=== PATIENT | female | born 1990 | race Caucasian/White ===

== ENCOUNTER → 2022-11-25 13:49 | Outpatient (CLI) | payer BC, SELFPAY ==
--- NOTE | 2022-11-25 13:50 | US_ITS ---
PROCEDURE: US TRANSVAGINAL CLINICAL INDICATION: abnormal uterine bleeding COMPARISON: No exams were available for comparison FINDINGS: Transabdominal sonographic images of the pelvis were obtained. UTERUS: 7.6 cm x 0.5 cmx 4.8 cm with a combined endometrial thickness of 9mm. Uterus is retroverted and retroflexed. LEFT OVARY: 3.8 cmx2.8 cmx2.3cm with a volume of 12.5ml.It has a polycystic appearance. Dominant follicle measuring 1.4 cm x 1.5 cm x 1.4 cm. RIGHT OVARY: 3.4 cmx 2.3 cmx2.1 cm with a volume of 8.3ml. It has a polycystic appearance. Both ovaries are seen and appear polycystic. Doppler flow to both ovaries are seen. There is no fluid in the cul-de-sac. IMPRESSION: 1. Retroverted, retroflexed uterus normal in shape and size. 2. The endometrium is normal measuring 9 mm. 3. Both ovaries appear polycystic. There is a dominant 1.5 cm follicle on the left ovary. 4. No fluid in the cul-de-sac. Dictated by: Rosendo Fernández MD 11/25/2022 17:59 Rosendo Fernández MD in OV 11/25/2022 17:59
== END ==
PROVIDERS: PCP Nurse Practitioner Family; Visit Provider Obstetrics & Gynecology
DX: N93.9 Abnormal uterine and vaginal bleeding, unspecified (principal)
CPT/HCPCS: 76830

== ENCOUNTER → 2022-12-30 15:35 | Outpatient (CLI) | payer BC, SELFPAY ==
[2022-12-30 15:56] LABS: Basophils % 0.3 % (0.1-2.0); Eosinophils # 0.5 K/mm3 (0.0-0.4); Eosinophils % 6.3 % (0.1-12.0); Hematocrit 42.1 % (37.0-47.0); Hemoglobin 14.3 g/dL (12.2-16.2); Lymphocytes # 2.4 K/mm3 (0.7-4.5); Lymphocytes % 33.6 % (10-50); Mean Corpuscular HGB Conc 33.9 g/dL (31.8-35.4); Mean Corpuscular Hemoglobin 32.2 pg (27.0-31.2); Mean Corpuscular Volume 95.1 fl (81-99); Mean Platelet Volume 8.5 fl (7.4-10.4); Monocytes # 0.3 K/mm3 (0.1-1.0); Monocytes % 3.8 % (1.7-9.3); Platelet Count 261 K/mm3 (142-424); Red Blood Count 4.43 M/mm3 (4.20-5.40); Red Cell Distribution Width 12.9 % (11.5-17.5); White Blood Count 7.1 K/mm3 (4.8-10.8)
[2022-12-30 16:45] LABS: Alanine Aminotransferase 31 U/L (12-78); Albumin Level 4.4 g/dl (3.5-5.0); Albumin/Globulin Ratio 1.6 (1.1-1.8); Alkaline Phosphatase 68 U/L (38-126); Anion Gap 12.3 mEq/L (5-15); Aspartate Amino Transferase 29 U/L (14-36); Bilirubin,Total 0.2 mg/dl (0.2-1.3); Blood Urea Nitrogen 15 mg/dl (7-17); Calcium 9.4 mg/dl (8.4-10.2); Carbon Dioxide 27 mmol/L (22.0-30.0); Chloride 105 mmol/L (98-107); Estimated Glomerular Filt Rate 98 ml/min (>60); GFR (African American) 118 ML/MIN (>60); Globulin 2.7 g/dL (1.3-3.2); Glucose 84 mg/dl (74-100); Potassium 4.3 mmoL/L (3.5-5.1); Sodium 140 mmol/L (136-145); Total Protein,Serum 7.1 g/dl (6.3-8.2)
[2022-12-30 17:01] LABS: HCG,Quantitative < 2 mIU/ml (0-5.42)
== END ==
PROVIDERS: PCP Nurse Practitioner Family; Visit Provider Obstetrics & Gynecology
DX: N92.0 Excessive and frequent menstruation with regular cycle (principal)
CPT/HCPCS: 80053; 84702; 85025

== ENCOUNTER 2023-01-04 10:13 | Observation (INO) | payer BC, SELFPAY ==
[2023-01-04] VITALS (20 sets, daily range): BP systolic 112–149; BP diastolic 67–105; PULSE 69–751; RESP 14–20; TEMP 35.7–36.8; O2SAT 92–99; BMI 42.3
--- NOTE | 2023-01-04 07:02 | EXP.HP ---
History of Present Illness *Admission Date: 01/04/23 *Reason for visit:: Abnormal uterine bleeding, pain with periods *History of present illness: Ms Maria L Butt presents to [facility] for scheduled surgery. She complains of abnormal uterine bleeding. She states periods have always been very irregular, heavy and painful but have become worse over the past 2 years. LMP 12/21/22. She states periods are very irregular. She admits she usually skips about 2 months each year. Pain occurs about 3 days before her period and lasts the whole time she is bleeding. Flow lasts 5-14 days. Flow is extremely heavy and affects activities of daily living. She has tried Nexplanon and OCPs in the past without success. History of tubal ligation in 2019. History of x 2. She desires definitive surgical intervention with hysterectomy. She reports last pap smear was September 2022 at . Pelvic ultrasound 11/25/22 within normal limits. Pap smear 08/2021 negative. TSH 09/18/21 at OSH was within normal limits. [facility] Disclaimer: The information contained in this section may have been updated after the patient was seen, as this information can be updated by other users. Medical History Abnormal uterine bleeding Allergies Dysmenorrhea Menorrhagia Morbid obesity with BMI of 40.0-44.9, adult Urinary tract infection Surgical History History of tonsillectomy History of tubal ligation History of wisdom tooth extraction Family History Grandmother Cancer Social History Smoking Status: Current every day smoker years smoked: 6 alcohol intake: never substance use type: denies use current occupational status: employed Travel in the last 8 weeks: None Review of Systems Review of Systems Review of systems:: pertinent systems reviewed and negative unless documented below *Genitourinary Genitourinary: Reports abnormal menses, Reports abnormal vaginal bleeding and Reports dysmenorrhea Meds Home Medications and Allergies Home Medications Medication Instructions Recorded Confirmed Type fexofenadine 180 mg tablet 180 mg PO DAILY 12/30/22 01/04/23 History New Prescriptions to Start Prescriptions: Allergies Allergy/AdvReac Type Severity Reaction Status Date / Time No Known Allergies Allergy Verified 01/04/23 06:21 Exam Constitutional Constitutional: no acute distress and cooperative *Routine HEENT Exam Head: Present normocephalic and atraumatic Eye: Absent conjunctivae pink ENT: Present mucous membranes moist *Routine Neck Exam Neck: Present full ROM *Routine Respiratory Exam Respiratory: Present CTA bilaterally and normal respiratory effort *Routine Cardiovascular Exam Cardiovascular: Present RRR *Routine Abdominal Exam Abdominal: Present soft, normoactive bowel sounds and obese; Absent tenderness or distended *Routine Rectal Exam Rectal:: deferred *Routine Genitalia Exam Genitalia:: normal female *Routine Extremities Exam Extremities: Present full ROM; Absent edema or calf tenderness *Routine Neurological Exam Neurological: Present alert, oriented X3 and moving all extremities Routine Psychiatric Exam Psychiatric: Present normal affect and cooperative Assessment and Plan *Assessment and plan (1) Abnormal uterine bleeding: Status: Acute Category: Medical Code(s): N93.9 - Abnormal uterine and vaginal bleeding, unspecified (2) Menorrhagia: Status: Acute Qualifiers: Menorrhagia type: with irregular cycle Qualified Code(s): N92.1 - Excessive and frequent menstruation with irregular cycle Category: Medical Code(s): N92.0 - Excessive and frequent menstruation with regular cycle (3) Dysmenorrhea: Status: Acute Category: Medical Code(s): N94.6 - Dysmeno
--- NOTE | 2023-01-04 07:38 | P.PNANES_ITS ---
[facility] Disclaimer: The information contained in this section may have been updated after the patient was seen, as this information can be updated by other users. Medical History Abnormal uterine bleeding Allergies Dysmenorrhea Menorrhagia Morbid obesity with BMI of 40.0-44.9, adult Urinary tract infection Surgical History History of tonsillectomy History of tubal ligation History of wisdom tooth extraction Family History Grandmother Cancer Social History Smoking Status: Current every day smoker years smoked: 6 alcohol intake: never substance use type: denies use current occupational status: employed Travel in the last 8 weeks: None [facility] Anesthesia Checklist Patient Identification Patient Identification: Verbal (Name & ) Structural Data Admitted From: Home Planned Operative Procedure/s: lap hyst bso Consent for Planned Operative Procedure(s) Verified: Yes NPO Status Verified Time NPO: 00:00 Additional verifications Anesthesia Reactions: No Hx Blood Transfusions: No Blood Transfusion Reaction: No Airway Assessment Mallampati Score:: Class III C-Spine Mobility Assessed: Yes TMJ Mobility Assessed: Yes Dentition: Good Dentition Neurological Assessment Level of Consciousness: Awake, Alert and Appropriate Anesthesia Plan Anesthesia Risk discussed: Yes Anesthesia Plan: Verified ASA Class: III Anesthesia Type: General
--- NOTE | 2023-01-04 09:56 | EXP.OP.NOTE ---
Date of procedure: 01/04/23 Pre-op Diagnosis:: 1. Abnormal uterine bleeding 2. Menorrhagia 3. Dysmenorrhea Post-op Diagnosis:: 1. Abnormal uterine bleeding 2. Menorrhagia 3. Dysmenorrhea Procedure performed:: Total Laparoscopic hysterectomy, bilateral salpingectomy Surgeon:: Mckenzie Ayala DO Hot Stick Worker(s):: Rosendo Fernández MD TRANSLATOR/INTERPRETER:: Other (Saldaris, TRANSLATOR/INTERPRETER) Anesthesia: GETA Estimated blood loss (mL): 100 Clinical Note:: Ms Maria L Butt presents to [facility] for scheduled surgery. She complains of abnormal uterine bleeding. She states periods have always been very irregular, heavy and painful but have become worse over the past 2 years. LMP 12/21/22. She states periods are very irregular. She admits she usually skips about 2 months each year. Pain occurs about 3 days before her period and lasts the whole time she is bleeding. Flow lasts 5-14 days. Flow is extremely heavy and affects activities of daily living. She has tried Nexplanon and OCPs in the past without success. History of tubal ligation in 2019. History of x 2. She desires definitive surgical intervention with hysterectomy. She reports last pap smear was September 2022 at . Pelvic ultrasound 11/25/22 within normal limits. Pap smear 08/2021 negative. TSH 09/18/21 at OSH was within normal limits. Operative findings:: 1. On bimanual exam, uterus normal size and shape, midposition. No adnexal masses palpated 3. On laparoscopic exam, grossly normal appearing liver, omentum, bowel, uterus and bilateral ovaries. Left fallopian tube appeared grossly normal with Filshie clip present. Right fallopian tube with hydrosalpinx, paratubal cyst and Filshie clip present Operative note:: Discussed risks, benefits, alternatives, expectations and possible complications of surgery. All questions addressed and answered. Patient wished to proceed with surgery. Patient was wheeled back to the operating room and placed under general anesthesia without difficulty. She was placed in the dorsal lithotomy position. She was prepped and draped in normal sterile fashion. Beginning at the vagina, a aceves catheter was inserted into the bladder and draining clear urine prior to the start of the procedure. Weighted Auvuard was placed in the vaginal vault. Anterior lip of the cervix was grasped with single tooth tenaculum. Uterus sounded to 9. Cam dilators were used to dilate the cervix. Advincula uterine manipulator was inserted into the cervix with the colpotomy cup covering the cervix. Single tooth tenaculum was removed prior to complete placement of colpotomy cup over cervix. Uterine balloon was filled with 10cc of air. Vaginal balloon was filled with 60 cc of air. Weighted Auvard was removed. Attention was then turned to the abdomen. Skin just below the umbilicus was injected with 0.5% marcaine. A 1.5 cm infraumbilical incision was made. Veress needle was tested and inserted intrabdominally. Opening pressure was 7 mm Hg. The peritoneal cavity was insulflated to 15 mm Hg. Laparoscope within 11 mm blunt trocar was inserted intrabdominally under direct visualization. Obturator and scope were removed. Laparoscope was inserted into the trocar sleeve. Abdomen and pelvis was viewed in its entirety. Examination of the peritoneal cavity revealed no signs of injury from entry and normal anatomic structures. See findings above. Pictures were taken. Bowel was swept cephalad with blunt probe. RLQ port site was transilluminated and injected with 0.5% marcaine. A 1.5 cm incision was made and 11 mm trocar was inserted intraabdominally under direct laparoscopic visualization. Obturator was removed and sleeve was left in place. Same procedure was performed in LLQ. Left fallopian tube was grasped at fimbriated end. Ligasure Hook was used to transect the left mesosalpinx, mesovarium and ovarian ligament. Left fallopian tube was transected at cornua of uterus and removed from the body and off of the sterile field to be sent to pathology for review. Martinez
--- NOTE | 2023-01-04 10:36 | P.PNANES_ITS ---
[facility] Anesthesia Record Part I Anesthesia Record I Intake, IV Amount: 900 Hydration: Adequate Estimated blood loss (mL): 100 Urine output (mL): 0 Blood Products used (#): none Blood Pressure: 136/105 SaO2: 98 Pulse Rate: 78 Airway Patency: Patent Respiratory Rate: 18 Temperature: 96.2 F Patient is:: Awake, Drowsy and Stable Stable to PACU at:: 09:40
--- NOTE | 2023-01-04 15:30 | SUR.PHASEI ---
Pt out of PACU and to OB at 1007, unable to reassess pain @ 1029
--- NOTE | 2023-01-04 20:00 | PC.NURSE ---
PT SATURATION LEVEL WAS 92% ON ROOM AIR,HAD PT TAKE SOME DEEP BREATHES AND IT MANDEEP TO 93-94%.TOLD PT WOULD PROBABLY USE SOME OXYGEN TONIGHT WHILE SHE SLEEPS,PT V/U.HAD PT USE HER INCENTIVE SPIROMETER AND SHE WAS ABLE TO ACHIEVE 2000ML,ENCOURAGED USE WHILE AWAKE,PT V/U.PT HAS A COUPLE ABRASION IN HER ABD.FOLDS.BACITRACIN OINTMENT WAS PLACED IN PACU WITH SOME TELFA FOLDED IN FOLDS.3 LAP SITES WITH DERMABOND ON THEM.BOWEL SOUNDS HYPOACTIVE
--- NOTE | 2023-01-04 21:00 | PC.NURSE ---
PT GETTING READY TO TRY AND GET SOME SLEEP.OXYGEN PER NASAL CANNULA APPLIED AT 2 LITERS SINCE SAT LEVEL WAS 93-94% AFTER TAKING SOME DEEP BREATH.PROBLABLY FROM GENERAL ANESTHESIA
[2023-01-05] VITALS: BP 94/57; PULSE 68; RESP 20; TEMP 36.7; O2SAT 98
[2023-01-05 03:30] VITALS: BP 113/71; PULSE 72; RESP 18; TEMP 36.6; O2SAT 97
--- NOTE | 2023-01-05 03:39 | PC.NURSE ---
PT BOWEL SOUND BETTER THIS MORNING,NORMAL X4 QUADS,PT REPORTS PASSING SOME GAS.3 LAP SITE WITHOUT S/S OF INFECTION.DERMABOND IN PLACE.PT HAS BEEN WEARING AN ABDOMAL BINDER.PT VOIDING WITHOUT DIFF.SCANT VAG.BLEEDING,LUNGS CLEAR,RESP.EVEN AND UNLABORED,SATURATION LEVEL AFTER TAKING OXYGEN OFF AND GOING TO BATHROOM WAS 97%
--- NOTE | 2023-01-05 04:00 | PC.NURSE ---
PT RANG OUT AND SAID SHE WANTED TO TALK WITH HER NURSE,UPON ENTERING ROOM PT REPORTS THE GAS IS RIGHT THERE,POINTING TO HER LOWER ABD.AND IT WON'T COME OUT,ASKED IF SHE WAS CHEWING HER GUM AND SHE SAID SHE HAD A PIECE IN HER MOUTH.TOLD HER THAT UP WALKING IN [place] OR ROCKING IN ROCKING CHAIR WOULD HELP,PT REPORTS SHE WILL TRY THE ROCKING CHAIR FIRST.ASKED IF SHE NEEDED ANY PAIN MEDICINE AND SHE SAID NO,CALL LIGHT IN REACH AND BED IN LOW POSITION,TABLE AND WATER IN REACH
[2023-01-05 06:33] LABS: Basophils % 0.3 % (0.1-2.0); Eosinophils # 0.1 K/mm3 (0.0-0.4); Eosinophils % 1.3 % (0.1-12.0); Hemoglobin 12.1 g/dL (12.2-16.2); Lymphocytes # 1.9 K/mm3 (0.7-4.5); Lymphocytes % 21.2 % (10-50); Mean Corpuscular HGB Conc 34.5 g/dL (31.8-35.4); Mean Corpuscular Hemoglobin 32.7 pg (27.0-31.2); Mean Corpuscular Volume 94.9 fl (81-99); Mean Platelet Volume 8.7 fl (7.4-10.4); Monocytes # 0.4 K/mm3 (0.1-1.0); Monocytes % 4.7 % (1.7-9.3); Neutrophils # 6.6 K/mm3 (1.8-7.8); Neutrophils % 72.6 % (37.0-80.0); Platelet Count 233 K/mm3 (142-424); Red Blood Count 3.69 M/mm3 (4.20-5.40); Red Cell Distribution Width 12.8 % (11.5-17.5); White Blood Count 9.2 K/mm3 (4.8-10.8)
[2023-01-05 06:50] LABS: Alanine Aminotransferase 21 U/L (12-78); Albumin Level 3.5 g/dl (3.5-5.0); Albumin/Globulin Ratio 1.4 (1.1-1.8); Alkaline Phosphatase 62 U/L (38-126); Anion Gap 10.9 mEq/L (5-15); Aspartate Amino Transferase 42 U/L (14-36); Bilirubin,Total 0.6 mg/dl (0.2-1.3); Blood Urea Nitrogen 12 mg/dl (7-17); Calcium 8.3 mg/dl (8.4-10.2); Carbon Dioxide 25 mmol/L (22.0-30.0); Chloride 104 mmol/L (98-107); Creatinine Clearance Estimated 109 mL/min (50-200); Estimated Glomerular Filt Rate 98 ml/min (>60); GFR (African American) 118 ML/MIN (>60); Globulin 2.5 g/dL (1.3-3.2); Glucose 92 mg/dl (74-100); Potassium 3.9 mmoL/L (3.5-5.1); Sodium 136 mmol/L (136-145)
--- NOTE | 2023-01-05 07:14 | EXP.ANES.CKL ---
[facility] Disclaimer: The information contained in this section may have been updated after the patient was seen, as this information can be updated by other users. Medical History Abnormal uterine bleeding Allergies Dysmenorrhea Menorrhagia Morbid obesity with BMI of 40.0-44.9, adult Urinary tract infection Surgical History History of tonsillectomy History of tubal ligation History of wisdom tooth extraction Family History Grandmother Cancer Social History (Updated 01/04/23 @ 17:51 by Sussy Li RN) Smoking Status: Current every day smoker years smoked: 6 alcohol intake: never substance use type: denies use current occupational status: employed Travel in the last 8 weeks: None [facility] Anesthesia Checklist Patient Identification Patient Identification: Arm Band and Verbal (Name & ) Structural Data Admitted From: Home Planned Operative Procedure/s: LATVH w/BSO Consent for Planned Operative Procedure(s) Verified: Yes Verified Documents: Surgical Consent and History and Physical NPO Status Verified Time NPO: 00:00 Chart Verification Results Verified: CBC, BMP and HCG Additional verifications Patient : No Anesthesia Reactions: No Hx Blood Transfusions: No Blood Transfusion Reaction: No Cephalosporin Allergy: No Previous Colonoscopy: No Cardiovascular Assessment Heart Sounds: S1 & S2 Pulse Rhythm: Irregular Peripheral Edema: No Airway Assessment Mallampati Score:: Class III C-Spine Mobility Assessed: Yes TMJ Mobility Assessed: Yes Dentition: Good Dentition (Nothing loose per pt.) Neurological Assessment Level of Consciousness: Awake, Alert, Appropriate and Follows Commands Hx Seizures: No Numbness or tingling in extremities: No Anesthesia Plan Anesthesia Risk discussed: Yes Anesthesia Plan: Verified ASA Class: III Anesthesia Type: General
--- NOTE | 2023-01-05 07:15 | EXP.ANES.II ---
[facility] Anesthesia Record Part II Anesthesia Record Part II Discharge Time: 10:05 Destination: Obstetric PACU nurse assessment reviewed?: Yes Patient Condition:: Good Anesthesia Complications:: None Swallowing reflex intact?: Yes Airway Patency: Patent Cyanosis?: No Blood Pressure: 136/105 SaO2: 98 Respiratory Rate: 18 Pulse Rate: 78 Temperature: 96.2 F Mental Status: Alert & Oriented Pain level:: 4 Nausea and/or vomitting:: None Intake, IV Amount: 900 Hydration: Adequate
[2023-01-05 07:17] VITALS: BP 136/105; PULSE 78; RESP 18; TEMP 35.7; O2SAT 98
[2023-01-05 08:15] VITALS: BP 109/63; PULSE 79; RESP 18; TEMP 36.7; O2SAT 99
[2023-01-05 09:11] VITALS: O2SAT 99
--- NOTE | 2023-01-05 09:15 | EXP.DC.SUM ---
General Admission date:: 01/04/23 Discharge date: 01/05/23 HPI HPI HPI: POD # 1 s/p TLH, BS Sitting in bedside chair comfortably. Pain controlled with medication. No vaginal bleeding. Tolerating regular diet. Voiding without difficulty and passing flatus. No nausea or vomiting. Denies fever/chills, chest pain and shortness of breath. No headaches, dizziness or lightheadedness. Ambulating well ad nasim. Hospital Course Hospital Course Hospital Course: Ms Maria L Butt presented to [facility] for scheduled surgery. She complains of abnormal uterine bleeding. She states periods have always been very irregular, heavy and painful but have become worse over the past 2 years. LMP 12/21/22. She states periods are very irregular. She admits she usually skips about 2 months each year. Pain occurs about 3 days before her period and lasts the whole time she is bleeding. Flow lasts 5-14 days. Flow is extremely heavy and affects activities of daily living. She has tried Nexplanon and OCPs in the past without success. History of tubal ligation in 2019. History of x 2. She desires definitive surgical intervention with hysterectomy. She reports last pap smear was September 2022 at . Pelvic ultrasound 11/25/22 within normal limits. Pap smear 08/2021 negative. TSH 09/18/21 at OSH was within normal limits. She underwent total laparoscopic hysterectomy, bilateral salpingectomy on 01/04/23. She did well postoperatively. Pain controlled with medication. No vaginal bleeding. Tolerating regular diet. Voiding without difficulty and passing flatus. No nausea or vomiting. Denies fever/chills, chest pain and shortness of breath. No headaches, dizziness or lightheadedness. Ambulating well ad nasim. She was discharged home on POD #1 with instructions to follow-up in office in 2 weeks or sooner if needed. Exam Data for Last 24 hours Vital signs and Labs for Last 24 Hours: Temp Pulse Resp BP Pulse Ox O2 Del Method O2 Flow Rate 98.0 F 79 18 109/63 L 99 Room Air 2 01/05/23 08:15 01/05/23 08:15 01/05/23 08:15 01/05/23 08:15 01/05/23 08:15 01/05/23 08:15 01/05/23 03:10 Laboratory Results - last 24 hr 01/05/23 06:22: WBC 9.2, RBC 3.69 L, Hgb 12.1 L, Hct 35.0 L, MCV 94.9, MCH 32.7 H, MCHC 34.5, RDW 12.8, Plt Count 233, MPV 8.7, Neut % (Auto) 72.6, Lymph % (Auto) 21.2, [place] % (Auto) 4.7, Eos % (Auto) 1.3, Baso % (Auto) 0.3, Neut # (Auto) 6.6, Lymph # (Auto) 1.9, [place] # (Auto) 0.4, Eos # (Auto) 0.1, Baso # (Auto) 0.0, Sodium 136, Potassium 3.9, Chloride 104, Carbon Dioxide 25, Anion Gap 10.9, BUN 12, Creatinine 0.70, Estimated Creat Clear 109, Estimated GFR 98, Est GFR ( Amer) 118, Glucose 92, Calcium 8.3 L, Total Bilirubin 0.6, AST 42 H, ALT 21, Alkaline Phosphatase 62, Total Protein 6.0 L, Albumin 3.5, Globulin 2.5, Albumin/Globulin Ratio 1.4 I & O for Last 24 hours: Intake & Output 01/03/23 01/03/23 01/04/23 01/05/23 00:59 23:59 23:59 23:59 Intake Total 900 / 900 900 / 900 Output Total 1050 / 1050 200 / 200 Balance -150 / -150 700 / 700 Weight 262 lb Constitutional Constitutional: no acute distress and cooperative *Routine HEENT Exam Head: Present normocephalic and atraumatic Eye: Absent conjunctivae pink ENT: Present mucous membranes moist *Routine Neck Exam Neck: Present full ROM *Routine Respiratory Exam Respiratory: Present CTA bilaterally and normal respiratory effort *Routine Cardiovascular Exam Cardiovascular: Present RRR *Routine Abdominal Exam Abdominal: Present soft and normoactive bowel sounds; Absent tenderness or distended Comments: Laparoscopic incisions clean/dry/intact with Dermabond *Routine Rectal Exam Patient deferred: visual exam *Routine Exam Patient deferred: external exam *Routine Extremities Exam Extremities: Present full ROM; Absent edema or calf tenderness *Routine Neurological Exam Neurological: Present alert, oriented X3 and moving all extremities Routine Psychiatric Exam Psychiatric: Present normal
--- NOTE | 2023-01-07 13:56 | CARE MANAGER ---
Called and spoke with patient regarding recent discharge. Patient states she is doing well, has started new medication and was aware of scheduled f/u appts. No concerns/complaints at time of call.
== END 2023-01-05 12:38 | disposition home or self-care (01) ==
LOC: OB 10:14
PROVIDERS: Admitting Provider Obstetrics & Gynecology; PCP Nurse Practitioner Family; Visit Provider Obstetrics & Gynecology
PROC: (CPT 58571; principal; 2023-01-04 07:30)
DX: N94.6 Dysmenorrhea, unspecified; E66.01 Morbid (severe) obesity due to excess calories; Z68.41 Body mass index [BMI] 40.0-44.9, adult; N92.1 Excessive and frequent menstruation with irregular cycle
CPT/HCPCS: 58571; 36415; 80053; 85025; 96374; G0378; J2405

== ENCOUNTER 2023-06-15 17:30 | Emergency (ER) | payer BC, SELFPAY ==
[2023-06-15 17:33] VITALS: BP 151/112; PULSE 98; RESP 20; TEMP 37.1; O2SAT 98; BMI 41.9
--- NOTE | 2023-06-15 17:50 | [facility].EDGENADL ---
Discharge Plan Disposition Patient Disposition: Home, Self-Care Condition: Good Prescriptions Prescriptions: New sulfamethoxazole-trimethoprim [Bactrim DS] 800-160 mg tablet 1 tab PO BID 10 Days Qty: 20 0RF No Action metronidazole 500 mg tablet 500 mg PO BID 7 Days Qty: 14 0RF fexofenadine 180 mg tablet 180 mg PO DAILY Referrals Follow up/Referrals: Provider,Bridger, [Primary Care Provider] - See instructions Kiet Trevino MD [Staff Physician] - See instructions Activity Restrictions/Add. Instructions Additional Instructions/Restrictions: Please keep packing in for 24 hours. You may change daily or as needed. Please take all of your antibiotic. Please call to make an appointment with general surgery in the morning. Return to the ER or follow-up with your PCP as needed for any change or worsening of your symptoms. Clinical Impressions Clinical Impression: Pilonidal abscess of cleft Instructions Patient Instructions: DI for Skin Abscess Discharge ED Provider: Cristofer Jacobson General Adult HPI <CLARA Welsh - Last Filed: 06/15/23 18:30> General Chief complaint: Skin/Abscess/Foreign Body Stated complaint: possible cyst on top of bottocks Time Seen by Provider: 06/15/23 17:50 Mode of Arrival: Ambulatory Source of Information: Patient Limitations: No Limitations Description of Symptoms (Recalled from ER Triage Doc. by RN): pt is complaining of a cyst at the top of her buttocks x 3 days, pt states its red and painful History of Present Illness HPI narrative: Patient presents for evaluation of pain in the cleft. Patient reports a 3-day history of what appears to be a cyst that she describes that has gotten bigger and more painful over the last 3 days. Patient denies fever chills hemoptysis hematochezia melena nausea vomiting diarrhea or trauma. Related Data Home Medications Medication Instructions Recorded Confirmed fexofenadine 180 mg tablet 180 mg PO DAILY Allergy Symptoms 12/30/22 02/17/23 Previous Rx's Medication Instructions Recorded metronidazole 500 mg tablet 500 mg PO BID 7 days #14 tabs 02/19/23 sulfamethoxazole 800 1 tab PO BID 10 days #20 tabs 06/15/23 mg-trimethoprim 160 mg tablet (Bactrim DS) Allergies Allergy/AdvReac Type Severity Reaction Status Date / Time No Known Allergies Allergy Verified 02/17/23 13:42 PFS <CLARA Welsh - Last Filed: 06/15/23 18:30> [facility] Disclaimer: The information contained in this section may have been updated after the patient was seen, as this information can be updated by other users. Medical History (Updated 06/15/23 @ 18:21 by CLARA Welsh) Urinary tract infection Allergies Morbid obesity with BMI of 40.0-44.9, adult Menorrhagia Dysmenorrhea Abnormal uterine bleeding Surgical History (Updated 02/17/23 @ 14:06 by Mckenzie Ayala DO) S/P laparoscopic hysterectomy History of tonsillectomy History of wisdom tooth extraction History of tubal ligation Family History Grandmother Cancer Breast Social History Smoking Status: Current every day smoker years smoked: 6 alcohol intake: never substance use type: denies use current occupational status: employed Travel in the last 8 weeks: None <CLARA Welsh - Last Filed: 06/15/23 18:30> ROS Obtained: Yes Systems reviewed as appropriate & no additional complaints except as documented Physical Exam <CLARA Welsh - Last Filed: 06/15/23 18:30> General General appearance: alert and in no apparent distress Respiratory Respiratory exam: Present normal lung sounds bilaterally Cardiovascular Cardiovascular exam: Present regular rate and normal rhythm Neurological Exam Neurological exam: Present alert Medical Decision Making <CLARA Welsh - Last Filed: 06/15/23 18:30> Medical Records Medical records reviewed: Yes I reviewed the patient's medical records. Shant Inquiry Pt receiving controlled substance: No Vital Signs: 06/15/23 17:33 06/15/23 18:34 06/15/23 18:35 Temperature 98.7 F 98.7 F Temperature Source Oral Oral Pulse Rate 90 Pulse Rate [Right Radial] 98 H Respiratory Rate 20 16 Blood Pressure 131/85 131/85 Blood Pressure [Right Arm] 151/112 H Blood Pressure Mean 110 Blood Pressure Mean [Right Arm] 125 02 Sat by Pulse Oximetry 98 Oxygen Delivery Method Room Air Room Air Lab Data Lab results reviewed: Yes I reviewed the patient's lab results. Orders (Tests/Meds): ED MEDICATIONS Discontinued Medications Generic Name Dose Route Start Last Admin Trade Name Freq PRN Reason Stop Dose Admin Lidocaine HCl 10 ml 06/15/23 17:55 06/15/23 18:00 Lidocaine 1% 10ml Mdv SQ 06/15/23 17:56 10 ml ONCE ONE Administration Trimethoprim/Sulfamethoxazole 1 each 06/15/23 17:55 06/15/23 18:22 Sulfa/Trimethoprim 1 Tablet PO 06/15/23 17:56 1 each ONCE ONE Administration ORDERS Category Date Time Status Wound Culture and Gram Stain Stat Micro 06/15/23 18:10 Received Medical Decision Narrative: In summary patient is a 2-year-old female who presents to the emergency department for evaluation of cyst in the cleft. Patient is hemodynamically stable upon arrival, afebrile. Physical exam is remarkable for a very large right-sided raeann cleft swelling that has exam spontaneously draining however it was quite small where it ruptured. Differential diagnosis includes differential includes fistula versus abscess versus pilonidal cyst. Drainage completed utilizing sterile technique and a scalpel. Patient reports improvement in her pain after drainage. Subsequently patient will be discharged home with a prescription for Bactrim and close follow-up with her PCP and a referral to general surgery. <Cristofer Jacobson MD - Last Filed: 06/15/23 23:30> Vital Signs: 06/15/23 17:33 06/15/23 18:34 06/15/23 18:35 Temperature 98.7 F 98.7 F Temperature Source Oral Oral Pulse Rate 90 Pulse Rate [Right Radial] 98 H Respiratory Rate 20 16 Blood Pressure 131/85 131/85 Blood Pressure [Right Arm] 151/112 H Blood Pressure Mean 110 Blood Pressure Mean [Right Arm] 125 02 Sat by Pulse Oximetry 98 Oxygen Delivery Method Room Air Room Air Orders (Tests/Meds): ED MEDICATIONS Discontinued Medications Generic Name Dose Route Start Last Admin Trade Name Freq PRN Reason Stop Dose Admin Lidocaine HCl 10 ml 06/15/23 17:55 06/15/23 18:00 Lidocaine 1% 10ml Mdv SQ 06/15/23 17:56 10 ml ONCE ONE Administration Trimethoprim/Sulfamethoxazole 1 each 06/15/23 17:55 06/15/23 18:22 Sulfa/Trimethoprim 1 Tablet PO 06/15/23 17:56 1 each ONCE ONE Administration ORDERS Category Date Time Status Wound Culture and Gram Stain Stat Micro 06/15/23 18:10 Received Medical Decision Narrative: In summary patient is a 2-year-old female who presents to the emergency department for evaluation of cyst in the cleft. Patient is hemodynamically stable upon arrival, afebrile. Physical exam is remarkable for a very large right-sided raeann cleft swelling that has exam spontaneously draining however it was quite small where it ruptured. Differential diagnosis includes differential includes fistula versus abscess versus pilonidal cyst. Drainage completed utilizing sterile technique and a scalpel. Patient reports improvement in her pain after drainage. Subsequently patient will be discharged home with a prescription for Bactrim and close follow-up with her PCP and a referral to general surgery. I was available for consultation. Signed, Cristofer Jacobson MD Procedures <CLARA Welsh - Last Filed: 06/15/23 18:30> Abscess I/D Site: other ( cleft) Side (if applicable): right Sedation/analgesia: none Local Anesthetic: lidocaine 1% Amount of anesthesia used (mL): 10 Technique: incised with #11 blade Amount of fluid expressed (mL): 5 Irrigation: No Packing used?: plain Critical Care <CLARA Welsh - Last Filed: 06/15/23 18:30> Critical Care Time Critical Care Time: No
[2023-06-15] MEDS: LIDOCAINE 1% 10ML MDV 10 ML SQ (18:00)
--- NOTE | 2023-06-15 18:07 | PC.NURSE ---
Marco Antonio DAVID and Kraig Beltran RN at BS
[2023-06-15] MEDS: SULFA/TRIMETHOPRIM 1 TABLET 1 EACH PO (18:22)
--- NOTE | 2023-06-15 18:22 | PC.NURSE ---
PT MEDICATED PER [facility]. PROVIDED CRACKERS AND PEANUT BUTTER. NO FURTHER NEEDS AT THIS TIME. CALL LIGHT WITHIN REACH
[2023-06-15 18:34] VITALS: BP 131/85; PULSE 90; RESP 16; TEMP 37.1; O2SAT 98
[2023-06-15 18:35] VITALS: BP 131/85
--- NOTE | 2023-06-18 09:53 | PC.NURSE ---
wound culture discussed with , pt dc with bactrim, ntd
== END 2023-06-15 18:45 | disposition home or self-care (01) ==
PROVIDERS: Emergency Provider Emergency Medicine
DX: L05.01 Pilonidal cyst with abscess (principal); B96.89 Other specified bacterial agents as the cause of diseases classified elsewhere; F17.210 Nicotine dependence, cigarettes, uncomplicated; E66.01 Morbid (severe) obesity due to excess calories; Z68.41 Body mass index [BMI] 40.0-44.9, adult
CPT/HCPCS: 10080; 87070; 87205; 99283